=== PATIENT | female | born 1955 | race Asian ===

== ENCOUNTER 2020-05-06 08:24 | Outpatient (CLI) | payer OTHER ==
--- NOTE | 2020-05-07 15:03 | Ultrasound Report ---
LIMITED ULTRASOUND OF RIGHT BREAST AND AXILLA: 05/06/2020 CLINICAL: Palpable right breast lump. Comparison is made to exams dated: 05/06/2020 mammogram - [facility], 01/18/2017 [facility], and 09/08/2015 mammogram - [facility]. Color flow and real-time ultrasound of the right breast 12 o'clock, and axilla regions were performed . Calzada scale images of the real-time examination were reviewed. There is a 0.9 cm x 0.6 cm x 0.5 cm irregular mass in the right breast at 12 o'clock posterior depth 5 cm from the nipple. This irregular mass is hypoechoic with no posterior acoustic shadowing or enha ncement. This correlates as palpated, with mammography findings, and area of clinical concern. [place] r flow imaging demonstrates that there is vascularity present. No significant abnormalities were seen sonographically in the right axilla. IMPRESSION: SUSPICIOUS OF MALIGNANCY The 0.9 cm x 0.6 cm x 0.5 cm irregular mass in the right breast is suspicious of malignancy. An ultr asound guided biopsy is recommended. Findings and recommendations were discussed with the patient during today's examination by Dr. Marcelo. This exam was interpreted at Station ID: [id number]. Electronically Signed By: Nando Marcelo M.D. aty/:05/06/2020 10:28:55 Ultrasound BI-RADS: 4 Suspicious for malignancy BI-RADS CATEGORY: (4) - 4 None [id number] Immediate follow-up LATERALITY: ()
--- NOTE | 2020-05-07 15:03 | Mammography Report ---
BILATERAL DIGITAL DIAGNOSTIC MAMMOGRAM 3D/2D: 05/06/2020 CLINICAL: Palpable right breast lump. Comparison is made to exams dated: 01/18/2017 mammogram and 09/08/2015 mammogram - [facility]. There are scattered fibroglandular elements in both breasts. There is a new 0.7 cm irregular mass in the right breast at 12 o'clock posterior depth. This correla ashlie with skin marker. There is architectural distortion associated with the mass. No other significant masses, calcifications, or other findings are seen in either breast. IMPRESSION: INCOMPLETE: NEEDS ADDITIONAL IMAGING EVALUATION The new 0.7 cm irregular mass in the right breast is indeterminate. An ultrasound is recommended for further evaluation and is scheduled to immediately follow this examination. This exam was interpreted at Station ID: [id number]. NOTE: For mammograms, a report in lay terms will be sent to the patient. Approximately 15% of breast malignancies will not be visualized mammographically. In the management of a palpable breast mass, a negative mammogram must not discourage biopsy of a clinically suspicious lesion. Electronically Signed By: Nando Marcelo M.D. aty/:05/06/2020 09:54:29 ACR BI-RADS Category 0: Incomplete 3340F PARENCHYMAL PATTERN: (A) - The breast(s) demonstrate(s) scattered fibroglandular densities. BI-RADS CATEGORY: (0) - 0 Ultrasound [id number] Immediate follow-up LATERALITY: (R)
== END 2020-05-06 08:25 | disposition home or self-care (01) ==
LOC: DI 08:24
PROVIDERS: ATTEND Family Medicine
DX: N63.15 Unspecified lump in the right breast, overlapping quadrants (principal)

== ENCOUNTER 2020-05-21 11:58 | Outpatient (CLI) | payer OTHER ==
[2020-05-21] MEDS ORDERED: BUFFERED LIDOCAINE 10 ML SYRINGE ONE (12:19)
[2020-05-21] MEDS ORDERED: BUPIVACAINE 0.5% PF 10 ML VIAL ONE (12:20)
[2020-05-21] MEDS ORDERED: BUPIVACAINE 0.5% PF 10 ML VIAL IM ONE (14:07)
[2020-05-21] MEDS ORDERED: BUFFERED LIDOCAINE 10 ML SYRINGE IU ONE (14:08)
--- NOTE | 2020-05-22 06:19 | Mammography Report ---
UNILATERAL RIGHT DIGITAL DIAGNOSTIC MAMMOGRAM 3D/2D: 05/21/2020 CLINICAL: Post right breast ultrasound biopsy, clip placment imaging. Comparison is made to exam dated: 05/06/2020 mammogram - [facility]. There are sc attered fibroglandular elements in right breast. The US biopsy marker placed earlier today is in exp ected position. IMPRESSION: POST PROCEDURE MAMMOGRAM FOR MARKER PLACEMENT Expected breast biopsy marker positioning. This exam was interpreted at Station ID: [id number]. NOTE: For mammograms, a report in lay terms will be sent to the patient. Approximately 15% of breast malignancies will not be visualized mammographically. In the management of a palpable breast mass, a negative mammogram must not discourage biopsy of a clinically suspicious lesion. Electronically Signed By: Gonzalo Kc M.D. [facility]/:05/21/2020 16:26:02 ACR BI-RADS Category Post-procedure mammogram for marker placement PARENCHYMAL PATTERN: (A) - The breast(s) demonstrate(s) scattered fibroglandular densities. BI-RADS CATEGORY: () - Unspecified - other recall n/a LATERALITY: (B)
--- NOTE | 2020-05-28 07:06 | Ultrasound Report ---
ULTRASOUND GUIDED BIOPSY RIGHT BREAST USING VACUUM DEVICE WITH MARKING DEVICE INSERTED AND POST MAMMO GRAPHIC AND ULTRASOUND IMAGIN05/21/2020 CLINICAL: Right breast mass. PATIENT CONSENT: Risks (minor bleeding, infection, vasovagal reaction and repeat procedure), benefits and alternatives were explained to the patient and written informed consent was obtained. Correlation is made to exams dated: 05/06/2020 ultrasound, 05/06/2020 mammogram - [facility], 01/18/2017 mammogram, and 09/08/2015 mammogram - [facility]. An ultrasound guided biopsy using real-time ultrasound was performed for the concerning palpable 0.7 cm x 0.4 cm x 0.5 cm circumscribed oval solid mass located in the right breast at 12 o'clock anterior depth. This was described on the previous ultrasound report. The skin was prepped in the usual manner. Local anesthetic was administered to the access site. A s kin fan was made in the breast. The abnormality was approached from the lateral aspect. A 13 gauge biopsy needle was placed adjacent to the abnormality under ultrasound guidance. Once the needle was documented to be in the correct location, five specimens were obtained using the Mammotome biopsy sy stem. The patient received additional local anesthetic during the procedure. A mammo clip was inser jayden into the biopsy cavity. A skin closure strip and a sterile dressing were applied to the access s ite. Post procedure mammographic and ultrasound imaging demonstrates the location device at the targ eted area and partial removal of the abnormality. The specimens were sent to the laboratory for path ological analysis. IMPRESSION: ULTRASOUND GUIDED BIOPSY MALIGNANT Ultrasound guided biopsy of the 0.7 cm x 0.4 cm x 0.5 cm solid mass in the right breast at 12 o'clock anterior depth was successful. Pathology demonstrates invasive adenocarcinoma. Pathology results are concordant with imaging finding s. A surgical/oncologic consultation is recommended. This exam was interpreted at Station ID: [id number]. Gonzalo Franklin M.D. [facility]/:05/27/2020 17:35:06 BI-RADS CATEGORY: () - Unspecified - other recall n/a LATERALITY: (B)
== END 2020-05-21 11:59 | disposition home or self-care (01) ==
LOC: DI 11:58
PROVIDERS: ATTEND Family Medicine
DX: C50.811 Malignant neoplasm of overlapping sites of right female breast (principal); Z17.0 Estrogen receptor positive status [ER+]
CPT/HCPCS: 19083